=== PATIENT | male | born 1995 | race Caucasian/White ===

== ENCOUNTER 2021-01-06 10:05 | Emergency (ER) | payer OTHER ==
[~2021-01-06] VITALS: Ht 182.9 cm; Wt 72.6 kg
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
[2021-01-06 11:08] LABS: URINE BILIRUBIN NEGATIVE (Negative); URINE BLOOD NEGATIVE (Negative); URINE CLARITY CLEAR; URINE COLOR YELLOW; URINE GLUCOSE-RANDOM* NEGATIVE (Negative); URINE KETONES NEGATIVE (Negative); URINE LEUKOCYTES-REFLEX NEGATIVE (Negative); URINE NITRITE-REFLEX NEGATIVE (Negative); URINE PROTEIN (DIPSTICK) NEGATIVE (Negative); URINE UROBILINOGEN 0.2 E.U./dl (0.2-1.0)
[2021-01-06 11:13] LABS: ABSOLUTE NEUTROPHILS 7.7 thou/uL (1.4-8.2); BASOPHILS 0.7 % (0.0-2.0); EOSINOPHILS 1.8 % (0.0-3.0); HEMOGLOBIN 16.3 gm/dL (14.0-18.0); MCH 33.8 pg (26.0-34.0); MCHC 33.3 g/dL (28.0-37.0); MCV 101.3 fL (80.0-100.0); MONOCYTES 10.6 % (1.0-8.0); PLATELET COUNT 286 thou/uL (150-400); POLYS 65.9 % (36.0-66.0); RBC 4.83 mil/uL (4.50-6.00); RDW 13.5 % (10.5-14.5); WBC 11.7 thou/uL (4.0-11.0)
[2021-01-06 11:17] LABS: AMP/METHAMP Negative (Negative); BARBITURATES Negative (Negative); BENZODIAZEPINES Negative (Negative); COCAINE Negative (Negative); METHADONE Negative (Negative); OPIATES Negative (Negative); PCP Negative (Negative)
[2021-01-06 11:23] LABS: ANION GAP 11 mmol/L (7-16); BUN 10 mg/dL (7-18); CALCIUM 8.9 mg/dL (8.5-10.1); CHLORIDE 107 mmol/L (98-107); CO2 26 mmol/L (21-32); CREATININE 1.2 mg/dL (0.7-1.3); GLUCOSE 150 mg/dL (74-106); POTASSIUM 3.1 mmol/L (3.5-5.1); SODIUM 144 mmol/L (136-145)
[2021-01-06 11:34] LABS: DIRECT BILIRUBIN 0.2 mg/dL (<0.1-0.2); LIPASE 133 U/L (73-393); MAGNESIUM 1.8 mg/dL (1.8-2.4); SGOT 24 U/L (15-37); SGPT 29 U/L (16-63); TOTAL BILIRUBIN 0.7 mg/dL (0.2-1.0); TOTAL PROTEIN 7.2 g/dL (6.4-8.2)
[2021-01-06 14:52] VITALS: BP 111/70
--- NOTE | 2021-01-07 12:32 | EKG ---
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
--- NOTE | 2021-01-07 12:35 | EKG ---
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
== END 2021-01-06 15:01 | disposition home or self-care (01) ==
LOC: ER 10:05
PROVIDERS: Student in an Organized Health Care Education/Training Program
DX: R07.89 Other chest pain (principal); R00.1 Bradycardia, unspecified; F41.9 Anxiety disorder, unspecified